=== PATIENT | male | born 1985 ===

== ENCOUNTER 2016-07-01 12:59 | Emergency (ER) | payer OTHER ==
[2016-07-01 13:48] VITALS: BP 123/74
[2016-07-01] MEDS ORDERED: Fluorescein Sodium TOPICAL* 1 MG TEST ONE (14:04)
[2016-07-01] MEDS ORDERED: BSS OPTH.SOL* BTL ONE (14:05)
[2016-07-01] MEDS ORDERED: Tetracaine 0.5% OPTH.SOL 15ML* BTL ONE (14:05)
--- NOTE | 2016-07-01 14:15 | UC ---
Eye Complaint HPI - HPI Summary HPI Summary: The patient comes in today for: 1. Left eye irritation: Onset: Last night Palliative/provocative: Nothing made it feel better or worse. Quality: Sharp last night, and now throbbing now. Region: Left eye. Severity: 4/10 now. Time: Constant. Associated symptoms: Event: He was working with sound proofing. After he was home, and showering , he felt like something got in his left eye. He irrigated his left eye with " a bottle of eye drops." This was last night. 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 Last night he had a 7/10 irritation. Now, it is a 3-4/10 pain Previous eye disease: None except the need for glasses. Today vision is "OK" and there is no drainage. *. - History of Current Complaint Chief Complaint: UCEye Stated Complaint: FIBERGLASS IN EYE Time Seen by Provider: 07/01/16 14:09 Hx Obtained From: Patient - Allergies/Home Medications Allergies/Adverse Reactions: Allergies Allergy/AdvReac Type Severity Reaction Status Date / Time No Known Allergies Allergy Verified 07/01/16 13:48 PMH/Surg Hx/FS Hx/Imm Hx Previously Healthy: Yes Endocrine History Of: Denies: Diabetes, Thyroid Disease, Hyperthyroidism, Hypothyroidism, Dyslipidemia Cardiovascular History Of: Denies: Cardiac Disorders, Hypertension, Pacemaker/ICD, Myocardial Infarction , Congestive Heart Failure, Atrial Fibrillation, Deep Vein Thrombosis, Bleeding Disorders Respiratory History Of: Denies: COPD, Asthma, Bronchitis, Pneumonia, Pulmonary Embolism GI/ History Of: Denies: Gastroesophageal Reflux, Ulcer, Gastrointestinal Bleed, Gall Bladder Disease, Kidney Stones, Diverticulitis, Renal Disease, Urosepsis Neurological History Of: Denies: TIA, CVA, Dementia, Seizures, Migraine Psychological History Of: Denies: Anxiety, Depression, Bipolar Disorder, Schizophrenia, Post Traumatic Stress Disorder Cancer History Of: Denies: Lung Cancer, Colorectal Cancer, Breast Cancer, Prostate Cancer, Cervical Cancer Other History Of: Negative For: HIV, Hepatitis B, Hepatitis C, Anticoagulant Therapy - Surgical History Surgical History: None - Family History Known Family History: Negative: Cardiac Disease, Hypertension - Social History Occupation: Employed Full-time Alcohol Use: Weekly Substance Use Type: None Smoking Status (MU): Never Smoked Tobacco Review of Systems Constitutional: Negative Skin: Negative ENT: Negative Respiratory: Negative Cardiovascular: Negative Gastrointestinal: Negative Genitourinary: Negative All Other Systems Reviewed And Are Negative: Yes Physical Exam Triage Information Reviewed: Yes Appearance: Well-Appearing, No Pain Distress, Well-Nourished Vital Signs: Initial Vital Signs Temp 98.4 F 07/01/16 13:44 Pulse 62 07/01/16 13:44 Resp 18 07/01/16 13:44 BP 123/74 07/01/16 13:44 Pulse Ox 100 07/01/16 13:44 Vital Signs Reviewed: Yes Eyes: Positive: Conjunctiva Clear - On right., Conjunctiva Inflamed - On left.. Negative: Discharge - On ENT: Positive: Hearing grossly normal. Negative: Pharyngeal erythema, Nasal congestion, Nasal drainage, TM bulging, TM dull, TM red, Tonsillar swelling, Tonsillar exudate Dental: Negative: Gross Decay/Caries @, Dental Fracture @ Neck: Positive: Supple, Nontender, No Lymphadenopathy. Negative: Nuchal Rigidity Respiratory: Positive: Chest non-tender, Lungs clear, No respiratory distress, No accessory muscle use. Negative: Crackles, Wheezing Cardiovascular: Positive: RRR, No Murmur Abdomen Description: Positive: Nontender, No Organomegaly, Soft. Negative: Distended, Guarding Musculoskeletal: Positive: Strength Intact, ROM Intact, No Edema Neurological: Positive: Alert, Muscle Tone Normal Psychological: Positive: Age Appropriate Behavior, Consolable Skin: Negative: rashes, breakdown UC Physical Exam Vital Signs On Initial Exam: Initial Vitals Temp Pulse Resp BP Pulse Ox 98.4 F 62 18 123/74 100 07/01/16 13:44 07/01/16 13:44 07/01/16 13:44 07/01/16 13:44 07/01/16 13:44 - Eye Exam Eye Exam: left eye: fluorescein in - No corneal abrasion. , bilateral eye: PERRL Eye Complaint Course/Dx - Course Course Of Treatment: Pt had numbing medication put in the eye. The FB sensation went away. - Differential Dx/Diagnosis Differential Diagnosis/HQI/PQRI: Conjunctivitis Provider Diagnoses: Left conjunctivitis (post foreign body). Discharge - Discharge Plan Condition: Stable Disposition: HOME Patient Education Materials: Eye Foreign Body (ED) Referrals: Elia Hoyt MD [Primary Care Provider] - If Needed (Please see your primary care provider in a week to see how well you are doing. If you get worse, please be seen sooner in the ER or through us.) Additional Instructions: Please use cold compresses to the eye as needed. You may use any non-prescription anti-histamine eye drops along with the prescription medication eye drop as needed for symptoms.
== END 2016-07-01 14:55 | disposition home or self-care (01) ==
LOC: UCEAST 12:59
DX: H10.9 Unspecified conjunctivitis (principal)
CPT/HCPCS: 99202; A9270-GY; G0463

== ENCOUNTER 2017-11-25 01:07 | Emergency (ER) | payer BC, OTHER ==
[2017-11-25] MEDS ORDERED: Fluorescein Sod TOPICAL 0.6* 0.6 MG TEST OPHTHALMIC ONE (02:05)
[2017-11-25] MEDS ORDERED: Tetracaine 0.5% OPTH.SOL 15ML* BTL ONE (02:05)
--- NOTE | 2017-11-25 02:13 | ED ---
Throat Pain/Nasal Congestion - HPI Summary HPI Summary: Pt. is a 32 y.o male who presents to the ER for FB to left eye. Pt. states he was removing his soft contact lenses tonight when the contact broke and roughly 30% on contact remained in eye. Pt. states his saw piece of contact in eye but was unable to remove it. Symptoms are mild in severity. Rubbing eye and blinking makes symptoms worse. Pain is minimal at this time. Unaware of last tetanus immunization. - History of Current Complaint Chief Complaint: EDEyeProblem Time Seen by Provider: 11/25/17 02:13 Hx Obtained From: Patient - Allergies/Home Medications Allergies/Adverse Reactions: Allergies Allergy/AdvReac Type Severity Reaction Status Date / Time No Known Allergies Allergy Verified 07/01/16 13:48 PMH/Surg Hx/FS Hx/Imm Hx Previously Healthy: Yes Endocrine/Hematology History: Denies: Hx Anticoagulant Therapy, Hx Diabetes, Hx Thyroid Disease Cardiovascular History: Denies: Hx Congestive Heart Failure, Hx Deep Vein Thrombosis, Hx Hypertension , Hx Myocardial Infarction, Hx Pacemaker/ICD Respiratory History: Denies: Hx Asthma, Hx Chronic Obstructive Pulmonary Disease (COPD), Hx Lung Cancer, Hx Pneumonia, Hx Pulmonary Embolism GI History: Denies: Hx Gall Bladder Disease, Hx Gastrointestinal Bleed, Hx Ulcer, Hx Urosepsis History: Denies: Hx Kidney Stones, Hx Renal Disease Neurological History: Denies: Hx Dementia, Hx Migraine, Hx Seizures, Hx Transient Ischemic Attacks (TIA) Psychiatric History: Denies: Hx Anxiety, Hx Depression, Hx Schizophrenia, Hx Bipolar Disorder Infectious Disease History: No Infectious Disease History: Denies: Traveled Outside the [place] in Last 30 Days - Family History Known Family History: Negative: Cardiac Disease, Hypertension - Social History Occupation: Employed Full-time Lives: With Family Alcohol Use: Weekly Substance Use Type: Reports: None Smoking Status (MU): Never Smoked Tobacco Review of Systems Positive: Other - FB left eye All Other Systems Reviewed And Are Negative: Yes Physical Exam Triage Information Reviewed: Yes Vital Signs On Initial Exam: Initial Vitals Temp Pulse Resp BP Pulse Ox 98.3 F 60 16 134/88 100 11/25/17 01:08 11/25/17 01:08 11/25/17 01:08 11/25/17 01:08 11/25/17 01:08 Vital Signs Reviewed: Yes Appearance: Positive: Well-Appearing - Pt. sitting up in bed in NAD> Skin: Positive: Warm, Dry Head/Face: Positive: Normal Head/Face Inspection Eyes: Positive: Normal, EOMI, RIA, Other: - Right eye unremarkable. MIld injection to left conjunctiva. No purulent drainage. No periorbital erythema or edema. Anterior chambers clear. Neck: Positive: Supple Neurological: Positive: Normal, CN Intact II-III Psychiatric: Positive: Affect/Mood Appropriate Procedures - Procedure Summary Procedure Summary: Left eyelid was anesthetized with tetracaine drops and stained with fluorescein dye. Examined under Newman lamp. Small area of uptake noted at 3:00. It was everted and no foreign body identified. Eye was extensively examined by myself and Dr. Guevara and no FB was noted. Diagnostics - Vital Signs Vital Signs Temp Pulse Resp BP Pulse Ox 11/25/17 01:08 98.3 F 60 16 134/88 100 - Laboratory Lab Statement: Any lab studies that have been ordered have been reviewed, and results considered in the medical decision making process. EENT Course/Dx - Course Course Of Treatment: Pt. presenting for FB to left eye. Eye was examined by myself and Dr. Guevara. Eye lid everted. No FB is identified. Pt. does have small corneal abrasions. Erythromycin ointment rx. Jocelynenus updated. To f.u with his eye doctor on Sunday if sxs persist. To return to ER if sxs change or worsen. - Differential Diagnoses Differential Diagnoses: Corneal Abrasion, Foreign Body - Diagnoses Provider Diagnoses: Corneal abrasion due to contact lens, Foreign body, eye Discharge - Sign-Out/Discharge Documenting (check all that apply): Patient Departure - Discharge Plan Condition: Good Disposition: HOME Prescriptions: Erythromycin OPHTH.OINT* [Ilotycin OPHTH.OINT*] 1 applic LEFT EYE TID #1 ophth.oint Patient Education Materials: Corneal Abrasion (ED), Eye Foreign Body (ED) Referrals: Elia Hoyt MD [Primary Care Provider] - Additional Instructions: Schedule a follow up appointment with your eye doctor if symptoms persist Do not wear contact lenses x 2-3 days Use antibiotic ointment as directed Return to ER if symptoms change or worsen - Billing Disposition and Condition Condition: GOOD Disposition: Home
[2017-11-25] MEDS ORDERED: Tetracaine 0.5% OPTH.SOL 4 ML* 1 DROP BTL ONE (02:14)
[2017-11-25] MEDS ORDERED: Tetan/Diph/Pertus SYR(Tdap)* 0.5 ML SYR(BOOSTRIX) use SYR IM ONE (02:38)
[2017-11-25 02:56] VITALS: BP 134/78
== END 2017-11-25 02:55 | disposition home or self-care (01) ==
LOC: ED 01:07
DX: H18.822 Corneal disorder due to contact lens, left eye (principal); T15.92XA Foreign body on external eye, part unspecified, left eye, initial encounter; X58.XXXA Exposure to other specified factors, initial encounter; Y92.9 Unspecified place or not applicable
CPT/HCPCS: 90471; 90715; 99282; A9270-GY